=== PATIENT | female | born 1955 | race Hispanic/Latino ===

== ENCOUNTER → 2016-12-05 | Day surgery (SDC) | payer OTHER ==
[~2016-12-05] VITALS: Ht 149.9 cm; Wt 74.8 kg
[~2016-12-05] MED LIST: BIOT800T2 PO; IBUP80TA; IODINE STRONG SOLN 15 ML BTL As Ordered ONE; KETOROLAC 60 MG/2 ML VIAL (J1885) As Ordered ONE; LIDOCAINE W/EPINEPHRINE 1% 20ML VIAL As Ordered ONE; LR 1,000 ML IV ONE; LR 1,000 ML IV SCH; MIDAZOLAM INJ 2 MG/2 ML VIAL (J2250) As Ordered ONE; NEXI1CAP4 PO; ONDANSETRON 4MG/2ML VIAL (J2405) As Ordered ONE; ONDANSETRON 4MG/2ML VIAL (J2405) IV PRN; PERCOCET 5MG/325MG TAB As Ordered ONE; PERCOCET 5MG/325MG TAB PO PRN; PROPOFOL 200 MG/20 ML VIAL As Ordered ONE; THROMBIN SOLN 20,000 UNITS KIT As Ordered ONE; THROMBIN SOLN 5,000 UNITS VIAL As Ordered ONE; dexameTHASONE 4 MG/ML 1ML VIAL (J1100) As Ordered ONE; fentaNYL 100 MCG/2 ML INJECTION (J3010) As Ordered ONE; fentaNYL 100 MCG/2 ML INJECTION (J3010) IV PRN
[2016-12-05 15:25] VITALS: BP 135/83
--- NOTE | 2016-12-05 21:24 | RO ---
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 Cannot rule out high grade squamous intraepithelial lesion. 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 Cannot rule out high grade squamous intraepithelial lesion. OPERATIVE PROCEDURE: Cold knife cone biopsy. 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 INDICATION FOR OPERATION: Cece is a 61 year old who had recent positive HPV testing with otherwise normal papsmear. Colposcopy was performed with endocervical polyp removed that was normal, ECC also performed which detected LGSIL, but could not rule out HGSIL. She was counseled on definitive management/further diagnosis with cold knife cone biopsy. DESCRIPTION OF FINDINGS: Normal appearing cervix with no overt lesions. Notably she has a large cystocele that was not assessed prior to this procedure as to whether or not she is symptomatic from it. INFECTION CLASSIFICATION: 2. ESTIMATED BLOOD LOSS: 15 mL IV FLUIDS: 900 mL of lactated ringers. URINE OUTPUT: No catheterization was performed for urine output. DESCRIPTION OF PROCEDURE: After obtaining informed consent, Cece was taken to the operating room where she underwent general anesthesia with laryngeal mask airway (LMA). She was placed in low lithotomy position and the perineum and vagina were prepped and draped in sterile fashion. A weighted speculum and Chaves retractor were inserted and the anterior segment of the cervix was grasped with a single tooth tenaculum. 1% lidocaine with epinephrine was injected in four quadrants to obtain a cervical block. At that point, two figure-of-8 stay sutures were placed at 3-o'clock and 9-o'clock using #0 Vicryl and those sutures were tagged. At that point, we replaced the tenaculum on the very anterior lip of the cervix and another tenaculum on the posterior lip. We then used a scalpel to remove an approximately 3 cm portion of the cervix in cone fashion and we placed a stitch at 12-o'clock to demarcate. The specimen was handed off the field and will go to pathology for evaluation. We then used cautery with the Bovie roller ball to gain complete hemostasis within the cold knife cone bed of the cervix. We then placed 2 pieces of Gelfoam soaked in thrombin within the cold knife cone bed and we tied the stay sutures over the Gelfoam to keep it in place. Complete hemostasis again noted. All instruments were removed then from the vagina. Vaginal sweep revealed nothing retained. All counts were correct times two. She was awakened from general anesthesia and was taken to the recovery room in good condition. LUCÍA
== END | disposition home or self-care (01) ==
LOC: M SDC 08:59
PROVIDERS: ATTEND Obstetrics & Gynecology
DX: N87.0 Mild cervical dysplasia (principal); R87.810 Cervical high risk human papillomavirus (HPV) DNA test positive; K21.9 Gastro-esophageal reflux disease without esophagitis; Z87.891 Personal history of nicotine dependence; Z79.899 Other long term (current) drug therapy
CPT/HCPCS: 36415; 57520; 85014; 85018; 86850; 86900; 86901; 88307; J1100; J1885; J2250; J2405; J3010

== ENCOUNTER 2017-10-22 15:08 | Emergency (ER) | payer OTHER ==
[2017-10-22 17:08] LABS: ANION GAP 7 MEQ/L (8-16); BLOOD UREA NITROGEN 7 MG/DL (7-18); CALCIUM LEVEL 9.4 MG/DL (8.8-10.2); CARBON DIOXIDE LEVEL 28 MEQ/L (21-32); CHLORIDE LEVEL 110 MEQ/L (98-107); CREATININE FOR GFR 0.76 MG/DL (0.55-1.30); GLOMERULAR FILTRATION RATE > 60.0 (>45); GLUCOSE, FASTING 91 MG/DL (70-100); POTASSIUM SERUM 3.4 MEQ/L (3.5-5.1); SODIUM LEVEL 145 MEQ/L (136-145)
[2017-10-22] MEDS: POTASSIUM CHLORIDE 10 MEQ SR TABLET PO (18:25)
[2017-10-22] MEDS: predniSONE 20 MG TAB PO (18:34)
[2017-10-22] MEDS: POLYSPORIN OPHTH OINT 3.5 GM OS (18:34)
[2017-10-22] MEDS: valACYclovir HCL 500 MG TAB PO (18:34)
[2017-10-25 00:08] LABS: Lyme Disease IgG/IgM Antibodie <0.91 ISR (0.00-0.90); Lyme Disease IgM Ab Quantitati <0.80 index (0.00-0.79)
== END 2017-10-22 18:58 | disposition home or self-care (01) ==
LOC: M ED 15:08
DX: G51.0 Bell's palsy (principal); K21.9 Gastro-esophageal reflux disease without esophagitis; Z79.899 Other long term (current) drug therapy
CPT/HCPCS: 70450